=== PATIENT | female | born 1955 | race Caucasian/White ===

== ENCOUNTER 2022-02-11 19:45 | Emergency (ER) | payer MEDICARE ==
--- NOTE | 2022-02-11 19:55 | ED Integumentary General ---
General Stated Complaint: R INDEX FINGER LAC History of Present Illness Date Seen by Provider: Feb 11, 2022 Time Seen by Provider: 19:52 Initial Comments 66-year-old female presents with a laceration to the right index finger. Patient reports that she was doing some crafts when she had it with a roller knife. She has an approximate 1.25 cm laceration. She is on a blood thinner so there is moderate bleeding. She has full range of motion and no other injury Allergies and Home Medications Allergies Coded Allergies: No Known Drug Allergies (Unverified , 02/11/22) Patient Home Medication List Home Medication List Reviewed: Yes Review of Systems Review of Systems Constitutional: no symptoms reported EENTM: no symptoms reported Respiratory: no symptoms reported Cardiovascular: no symptoms reported Gastrointestinal: no symptoms reported Genitourinary: no symptoms reported Musculoskeletal: no symptoms reported Skin: see HPI Psychiatric/Neurological: No Symptoms Reported Endocrine: No Symptoms Reported Physical Exam Vital Signs Vital Signs - First Documented 02/11/22 19:51 Pulse 79 Resp 18 B/P (MAP) 138/65 (89) Pulse Ox 100 O2 Delivery Room Air Capillary Refill : General Appearance: WD/WN, no apparent distress HEENT: PERRL/EOMI Neck: full range of motion, supple Cardiovascular: normal peripheral pulses, regular rate, rhythm Respiratory: lungs clear, normal breath sounds Neurologic/Psychiatric: alert, normal mood/affect, oriented x 3 Skin Problem Location: upper extremities (Left index finger) Skin Problem Character: linear, other (1.25 cm laceration) Procedures/Interventions Wound Location: Upper Extremities Other Wound Location Left index finger Wound's Depth, Shape: superficial, linear Wound Explored: clean Anesthesia: 1% Lidocaine Volume Anesthetic (ccs): 1 Suture: Ethlion Suture Size: 4-0 Number of Sutures: 3 Sterile Dressing Applied?: Yes Progress Patient tolerated well with no immediate complications Progress/Results/Core Measures Results/Orders My Orders Orders - JUANA MATT DO Wound Dressing-Ed (02/11/22 20:17) Vital Signs/I&O 02/11/22 19:51 Pulse 79 Resp 18 B/P (MAP) 138/65 (89) Pulse Ox 100 O2 Delivery Room Air Departure Impression Primary Impression: Laceration of left index finger w/o foreign body w/o damage to nail Qualified Codes: S61.211A - Laceration without foreign body of left index finger without damage to nail, initial encounter Disposition: HOME, SELF-CARE Condition: Stable Departure-Patient Inst. Referrals: IVY HINOJOSA MD (PCP/Family) Primary Care Physician Patient Instructions: Laceration Repair With Stitches ED Add. Discharge Instructions: Keep clean with warm soapy water Please return to the ER or follow-up with your primary care provider and 9 to 10 days for suture removal JUANA MATT DO Feb 11, 2022 19:55
[2022-02-11 20:27] VITALS: BP 138/65
== END 2022-02-11 20:27 | disposition home or self-care (01) ==
LOC: ER FS 19:47
DX: S61.211A Laceration without foreign body of left index finger without damage to nail, initial encounter (principal); Z28.310 Unvaccinated for COVID-19; Z79.01 Long term (current) use of anticoagulants; W26.0XXA Contact with knife, initial encounter
CPT/HCPCS: 12001

== ENCOUNTER 2022-06-22 18:49 | Emergency (ER) | payer MEDICARE, OTHER ==
[2022-06-22 19:11] LABS: BASOPHILS % (AUTO) 1 % (0-10); EOSINOPHILS # (AUTO) 0.1 10^3/uL (0.0-0.3); EOSINOPHILS % (AUTO) 1 % (0-10); HEMATOCRIT 29 % (35-52); HEMOGLOBIN 10.1 g/dL (11.5-16.0); LYMPHOCYTES # (AUTO) 1.9 10^3/uL (1.0-4.0); LYMPHOCYTES % (AUTO) 28 % (12-44); MEAN CORPUSCULAR HEMOGLOBIN 33 pg (25-34); MEAN CORPUSCULAR HGB CONC 35 g/dL (32-36); MEAN CORPUSCULAR VOLUME 96 fL (80-99); MEAN PLATELET VOLUME 9.1 fL (9.0-12.2); MONOCYTES # (AUTO) 0.6 10^3/uL (0.0-1.0); MONOCYTES % (AUTO) 9 % (0-12); NEUTROPHILS # (AUTO) 4.2 10^3/uL (1.8-7.8); NEUTROPHILS % (AUTO) 61 % (42-75); PLATELET COUNT 233 10^3/uL (130-400); WHITE BLOOD COUNT 6.9 10^3/uL (4.3-11.0)
[2022-06-22 19:24] LABS: INR 0.9 (0.8-1.4); PROTHROMBIN TIME PATIENT 13.1 SEC (12.2-14.7)
[2022-06-22 19:31] LABS: ALBUMIN 3.9 GM/DL (3.2-4.5); BILIRUBIN,TOTAL 0.3 MG/DL (0.1-1.0); CALCIUM 9.5 MG/DL (8.5-10.1); CREATININE SERUM 1.31 MG/DL (0.60-1.30); MAGNESIUM 1.9 MG/DL (1.6-2.4); TOTAL PROTEIN 5.8 GM/DL (6.4-8.2)
[2022-06-22 19:32] VITALS: BP_SYST 106; BP_SYST 110; BP_SYST 98; BP_DIAS 62; BP_DIAS 66; BP_DIAS 69
--- NOTE | 2022-06-22 19:42 | ED Cardiac General ---
History of Present Illness General Chief Complaint: Cardiac/General Problems Stated Complaint: CHEST PAIN Nursing Triage Note: Patient presents to the ED via EMS with c/o palpitations and chest tightness. States symptoms began 3 hours ago. Took blood pressure with reported reading of 71/56 and heart rate in the 120s. Patient reports symptoms are worse when she is standing or walking. States she called her hearing instrument specialist and was instructed to go to the nearest ED for evaluation. Denies any chest pain upon arrival. Source: patient Exam Limitations: no limitations History of Present Illness Date Seen by Provider: Jun 22, 2022 Time Seen by Provider: 18:50 Initial Comments 67yoF with PMH of thoracic aortic aneurysm, HTN, HLD, RA, fibromyalgia coming in due to chest pain and palpitations. Started about 3 hours ago. Heart rate was 120, BP was 70's/50's. She says this happens intermittently since having COVID, and typically gets better. Currently not having any chest pain, SOB, palpitations, and overall feels back to baseline. Has had a recent eval of her AAA which showed it was stable around 4.7cm. 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 Allergies and Home Medications Allergies Coded Allergies: No Known Drug Allergies (Unverified , 02/11/22) Patient Home Medication List Home Medication List Reviewed: Yes Review of Systems Review of Systems Constitutional: No fever EENTM: No Symptoms Reported Respiratory: No Symptoms Reported Cardiovascular: See HPI Gastrointestinal: No Symptoms Reported Genitourinary: No Symptoms Reported Musculoskeletal: no symptoms reported Skin: no symptoms reported Psychiatric/Neurological: No Symptoms Reported Endocrine: No Symptoms Reported Hematologic/Lymphatic: No Symptoms Reported Past Pzxiyse-Yaphkh-Xsndqm Hx Patient Social History Tobacco Use?: No Use of E-Cig and/or Vaping dev: No Substance use?: No Alcohol Use?: No Pt feels they are or have been: No Immunizations Up To Date First/Initial COVID19 Vaccinat: YES Physical Exam Vital Signs Vital Signs - First Documented 06/22/22 19:00 Temp 35.9 Pulse 87 Resp 16 B/P (MAP) 111/72 (85) O2 Delivery Room Air Capillary Refill : Less Than 3 Seconds Height, Weight, BMI Height: '" Weight: lbs. oz. kg; BMI Method: General Appearance: No Apparent Distress, WD/WN HEENT: PERRL/EOMI, Normal ENT Inspection, Pharynx Normal Neck: Full Range of Motion, Normal Inspection, Non Tender, Supple Respiratory: Chest Non Tender, Lungs Clear, Normal Breath Sounds, No Accessory Muscle Use, No Respiratory Distress Cardiovascular: Regular Rate, Rhythm, No Edema, Normal Peripheral Pulses Gastrointestinal: Normal Bowel Sounds, Non Tender, Soft Extremity: Normal Capillary Refill, Normal Inspection, Normal Range of Motion, Non Tender, No Calf Tenderness, No Pedal Edema Neurologic/Psychiatric: Alert, No Motor/Sensory Deficits, Normal Mood/Affect Skin: Normal Color, Warm/Dry Lymphatic: No Adenopathy Procedures/Interventions Suture Size: 4-0 Progress/Results/Core Measures Results/Orders Lab Results Laboratory Tests Test 06/22/22 19:00 Range/Units White Blood Count 6.9 4.3-11.0 10^3/uL Red Blood Count 3.05 L 3.80-5.11 10^6/uL Hemoglobin 10.1 L 11.5-16.0 g/dL Hematocrit 29 L 35-52 % Mean Corpuscular Volume 96 80-99 fL Mean Corpuscular Hemoglobin 33 25-34 pg Mean Corpuscular Hemoglobin Concent 35 32-36 g/dL Red Cell Distribution Width 12.7 10.0-14.5 % Platelet Count 233 130-400 10^3/uL Mean Platelet Volume 9.1 9.0-12.2 fL Immature Granulocyte % (Auto) 0 % Neutrophils (%) (Auto) 61 42-75 % Lymphocytes (%) (Auto) 28 12-44 % Monocytes (%) (Auto) 9 0-12 % Eosinophils (%) (Auto) 1 0-10 % Basophils (%) (Auto) 1 0-10 % Neutrophils # (Auto) 4.2 1.8-7.8 10^3/uL Lymphocytes # (Auto) 1.9 1.0-4.0 10^3/uL Monocytes # (Auto) 0.6 0.0-1.0 10^3/uL Eosinophils # (Auto) 0.1 0.0-0.3 10^3/uL Basophils # (Auto) 0.0 0.0-0.1 10^3/uL Immature Granulocyte # (Auto) 0.0 0.0-0.1 10^3/uL Prothrombin Time 13.1 12.2-14.7 SEC INR Comment 0.9 0.8-1.4 Activated Partial Thromboplast Time 34 24-35 SEC D-Dimer 0.77 H 0.00-0.49 UG/ML Sodium Level 135 135-145 MMOL/L Potassium Level 4.0 3.6-5.0 MMOL/L Chloride Level 103 98-107 MMOL/L Carbon Dioxide Level 19 L 21-32 MMOL/L Anion Gap 13 5-14 MMOL/L Blood Urea Nitrogen 23 H 7-18 MG/DL Creatinine 1.31 H 0.60-1.30 MG/DL Estimat Glomerular Filtration Rate 45 BUN/Creatinine Ratio 18 Glucose Level 122 H 70-105 MG/DL Calcium Level 9.5 8.5-10.1 MG/DL Corrected Calcium 9.6 8.5-10.1 MG/DL Magnesium Level 1.9 1.6-2.4 MG/DL Total Bilirubin 0.3 0.1-1.0 MG/DL Aspartate Amino Transf (AST/SGOT) 29 5-34 U/L Alanine Aminotransferase (ALT/SGPT) 27 0-55 U/L Alkaline Phosphatase 70 40-136 U/L Troponin I < 0.30 <0.30 NG/ML Pro-B-Type Natriuretic Peptide 231.9 H <125.0 PG/ML Total Protein 5.8 L 6.4-8.2 GM/DL Albumin 3.9 3.2-4.5 GM/DL Lipase 28 8-78 U/L My Orders Orders - CATHLEEN RICHARDSON MD Cbc With Automated Diff (06/22/22 19:04) Magnesium (06/22/22 19:04) Chest 1 View Ap/Pa Only (06/22/22:04) Ekg Tracing (06/22/22 19:04) Comprehensive Metabolic Panel (06/22/22 19:04) Protime With Inr (06/22/22 19:) Partial Thromboplastin Time (06/22/22 19:04) O2 (06/22/22:04) Monitor-Rhythm Ecg Trace Only (06/22/22 19:04) Ed Iv/Invasive Line Start (06/22/22 19:04) Lipase (06/22/22 19:04) Fibrin Degradation Products (06/22/22 19:04) Troponin I Fs (06/22/22:04) Probnp Fs (06/22/22 19:04) Cta Aorta W/Wo Ct Abd W/O (06/22/22 19:46) Iohexol Injection (Omnipaque 350 Mg/Ml 1 (06/22/22 20:30) Received Contrast (Hold Metformin- Contr (06/22/22 20:30) Sodium Chloride Flush (Catheter Flush Sy (06/22/22 20:30) Ns (Ivpb) (Sodium Chloride 0.9% Ivpb Bag (06/22/22 20:30) Medications Given in ED Current Medications Medications Dose Ordered Sig/Gema Route Start Time Stop Time Status Last Admin Dose Admin Iohexol 100 ml ONCE ONCE IV 06/22/22 20:30 06/22/22 20:31 DC 06/22/22 20:31 100 ML Sodium Chloride 10 ml NEEDED PRN IV 06/22/22 20:30 06/22/22 20:31 10 ML Sodium Chloride 100 ml ONCE ONCE IV 06/22/22 20:30 06/22/22 20:31 DC 06/22/22 20:31 100 ML Vital Signs/I&O 06/22/22 06/22/22 19:00 19:32 Temp 35.9 Pulse 87 82 84 86 Resp 16 B/P (MAP) 111/72 (85) 110/62 (78) 106/66 (79) 98/69 (79) O2 Delivery Room Air Blood Pressure Mean: 79 Progress Progress Note : Progress Note 67-year-old female with above history coming in due to transient chest discomfort, hypotension, tachycardia. ABCs were intact and vitals were stable on presentation. An IV was placed and basic labs were obtained including cardiac biomarkers. D-dimer slightly elevated. CT aortogram then ordered which was negative for dissection and her aneurysm is stable compared to what she states her typical sizes. She says on the ultrasound it was around 4.7 cm recently with her vascular surgeon. It is 4.[address] today which is consistent. Troponin is negative and otherwise labs are unremarkable. I think is highly unlikely given she had pain for 3 hours with a negative troponin that is ACS related, additionally no EKG changes that would be concerning for acute ischemia on my interpretation. No central PE on CT, no dissection, and otherwise she is well-appearing. She never had any tachycardia or hypotension here. I believe she is otherwise stable for discharge with outpatient follow- up. She was sent home with strict return precautions. Initial ECG Impression Date: Jun 22, 2022 Initial ECG Impression Time: 19:02 Initial ECG Rate: 86 Initial ECG Rhythm: Normal Sinus Comment Narrow QRS, left axis deviation, no significant ST changes or T wave abnormalities Diagnostic Imaging Diagonstic Imaging: Xray (chest), CT (CT aortagram) Comments [facility], [place] NAME: LAURA WILLAMS [facility] REC#: [id number] PT STATUS: REG ER : 1955 PHYSICIAN: CATHLEEN RICHARDSON MD ADMIT DATE: 06/22/22/ER FS Draft Date of Exam:06/22/22 CHEST 1 VIEW AP/PA ONLY CLINICAL INDICATION: Patient with chest pain. EXAM: Portable chest x-ray upright view. COMPARISON: None. FINDINGS: Lungs/pleura: Likely skinfold overlying the lateral right lower lung field region. Lungs are clear. There is no pneumothorax. There is no pleural effusion. Mediastinum: Unremarkable. Pulmonary vasculature: Unremarkable. Heart: Unremarkable. Bones/extrathoracic soft tissue: There are degenerative spurs involving the thoracic spine. There is degenerative disease of the right shoulder. IMPRESSION: There is no radiographic evidence of acute cardiopulmonary process. Dictated on workstation # [id number] Dict: 06/22/22 2100 Trans: 06/22/222101 [facility] [id number] Interpreted by: JONATAN LOPEZ MD Electronically signed by: NAME: LAURA WILLAMS [facility] REC#: [id number] PT STATUS: REG ER : 1955 PHYSICIAN: CATHLEEN RICHARDSON MD ADMIT DATE: 06/22/22/ER FS Draft Date of Exam:06/22/22 CTA AORTA W/WO CT ABD W/O Clinical indication: Patient with chest pain and history of AAA of roughly 5 cm in the past. Patient with history of cholecystectomy and low back pain. Exam: CT angiogram of the chest and abdomen performed with 100 cc Omnipaque 350 IV contrast. Coronal and oblique MIP images of the vasculature were created to better evaluate anatomy. Auto Exposure Controls were utilized during the CT exam to meet ALARA standards for radiation dose reduction. Comparison: None. Findings: There is mild atelectasis involving the posterior aspects of both lungs. Otherwise, lungs are clear. There is no pleural effusion or pneumothorax. There is no significant mediastinal or hilar lymphadenopathy. There is no axillary lymphadenopathy. Limited visualization of the thyroid gland is unremarkable. There is an ascending thoracic aortic aneurysm which measures 4.6 cm x 4.5 cm in AP by transverse dimensions. The transverse thoracic aorta measures 2.5 cm in width. The ascending thoracic aorta measures 2.3 cm in AP dimensions. There is no evidence of dissection involving the thoracic aorta. The celiac artery and SMA are patent without major stenosis. Pulmonary arteries are patent, as visualized, with no evidence of pulmonary embolism. There is dense contrast within the superior vena cava which caused streak artifact obscuring portions of the mediastinum. Limited visualization of the upper abdominal structures are unremarkable. The extrathoracic soft tissue structures are unremarkable. There are degenerative spurs involving the thoracic spine. Impression: 1: There is an ascending thoracic aortic aneurysm which measures 4.6 cm in greatest axial dimension. There is no evidence of vascular dissection. 2: There is no other aortic aneurysm or dissection seen. Pulmonary arteries are patent, as visualized. 3: There is mild atelectasis involving both lower lobes. Otherwise, lungs are clear. Dictated on workstation # [id number] Dict: 06/22/222123 Trans: 06/22/222131 [facility] [id number] Interpreted by: JONATAN LOPEZ MD Electronically signed by: Departure Impression Primary Impression: Chest pain Qualified Codes: R07.82 - Intercostal pain Additional Impression: Thoracic aortic aneurysm Qualified Codes: I71.21 - Aneurysm of the ascending aorta, without rupture Disposition: HOME, SELF-CARE Condition: Improved Departure-Patient Inst. Decision time for Depature: 21:42 Referrals: IVY HINOJOSA MD (PCP/Family) Primary Care Physician Patient Instructions: Chest Pain, Adult ED, Bradycardia (DC) Add. Discharge Instructions: We are not seeing any evidence of heart attack, blood clot, and your aneurysm appears stable on imaging. Please follow-up with your regular doctor if symptoms or not improving. Also your blood pressure had improved in the ER, it is unclear what the causes for your intermittent low blood pressures. Work/School Note: Work Release Form Date Seen in the Emergency Department: Jun 22, 2022 Return to Work: Jun 23, 2022 Restrictions: No Restrictions CATHLEEN RICHARDSON MD Jun 22, 2022 19:42
[2022-06-22] MEDS ORDERED: NS 100 ML (IVPB) BAG IV ONE (20:30)
[2022-06-22] MEDS ORDERED: HOLD METFORMIN - RECEIVED CONTRAST 20 ML VIAL IV SCH (20:30)
[2022-06-22] MEDS ORDERED: IOHEXOL 350 MG/ML 100 ML (OMNIPAQUE 350) VIAL IV ONE (20:30)
[2022-06-22] MEDS ORDERED: CATHETER FLUSH 10 ML SYR IV PRN (20:30)
--- NOTE | 2022-06-22 21:03 | Diagnostic Imaging Report ---
CLINICAL INDICATION: Patient with chest pain. EXAM: Portable chest x-ray upright view. COMPARISON: None. FINDINGS: Lungs/pleura: Likely skinfold overlying the lateral right lower lung field region. Lungs are clear. There is no pneumothorax. There is no pleural effusion. Mediastinum: Unremarkable. Pulmonary vasculature: Unremarkable. Heart: Unremarkable. Bones/extrathoracic soft tissue: There are degenerative spurs involving the thoracic spine. There is degenerative disease of the right shoulder. IMPRESSION: There is no radiographic evidence of acute cardiopulmonary process. Dictated by: Dictated on workstation # [id number]
--- NOTE | 2022-06-22 21:33 | Diagnostic Imaging Report ---
Clinical indication: Patient with chest pain and history of AAA of roughly 5 cm in the past. Patient with history of cholecystectomy and low back pain. Exam: CT angiogram of the chest and abdomen performed with 100 cc Omnipaque 350 IV contrast. Coronal and oblique MIP images of the vasculature were created to better evaluate anatomy. Auto Exposure Controls were utilized during the CT exam to meet ALARA standards for radiation dose reduction. Comparison: None. Findings: There is mild atelectasis involving the posterior aspects of both lungs. Otherwise, lungs are clear. There is no pleural effusion or pneumothorax. There is no significant mediastinal or hilar lymphadenopathy. There is no axillary lymphadenopathy. Limited visualization of the thyroid gland is unremarkable. There is an ascending thoracic aortic aneurysm which measures 4.6 cm x 4.5 cm in AP by transverse dimensions. The transverse thoracic aorta measures 2.5 cm in width. The ascending thoracic aorta measures 2.3 cm in AP dimensions. There is no evidence of dissection involving the thoracic aorta. The celiac artery and SMA are patent without major stenosis. Pulmonary arteries are patent, as visualized, with no evidence of pulmonary embolism. There is dense contrast within the superior vena cava which caused streak artifact obscuring portions of the mediastinum. Limited visualization of the upper abdominal structures are unremarkable. The extrathoracic soft tissue structures are unremarkable. There are degenerative spurs involving the thoracic spine. Impression: 1: There is an ascending thoracic aortic aneurysm which measures 4.6 cm in greatest axial dimension. There is no evidence of vascular dissection. 2: There is no other aortic aneurysm or dissection seen. Pulmonary arteries are patent, as visualized. 3: There is mild atelectasis involving both lower lobes. Otherwise, lungs are clear. Dictated by: Dictated on workstation # [id number]
[2022-06-22 21:53] VITALS: BP 130/66
== END 2022-06-22 21:54 | disposition home or self-care (01) ==
LOC: ER FS 18:49 → EDUNIT# 18:49 → ER FS 21:54
DX: I71.21 Aneurysm of the ascending aorta, without rupture (principal); I95.9 Hypotension, unspecified; R00.0 Tachycardia, unspecified
CPT/HCPCS: 36415; 71045; 74150; 75635; 80053; 83690; 83735; 83880; 84484; 85025; 85379; 85610; 85730; 93005; 93041